=== PATIENT | female | born 1990 | race Caucasian/White ===

== ENCOUNTER → 2016-10-26 | Outpatient (CLI) | payer OTHER ==
--- NOTE | 2016-10-26 15:50 | REP ---
Clinical: Anatomical evaluation. Comparison: None . Findings: Examination demonstrates a single live intrauterine in variable presentation. motion is identified by technologist. Placenta is noted left lateral towards the fundus and grade zero without evidence for placenta previa or abruption. Amniotic fluid volume is normal. Cervix measures 3.9 cm in length and appears closed. No evidence for nuchal cord. Gestational age by LMP 19 weeks 5 days with [place] 03/17/2017 . Gestational age by current measurements 18 weeks 4 days with [place] 03/25/2017 . FHR equals 150 beats per minute. BPD 4.3 cm 19 weeks 0 days HC 15.9 cm 18 weeks 5 days AC 13.0 cm 18 weeks 4 days FL 2.8 cm 18 weeks 3 days HL 2.7 cm 18 weeks 4 days HC/AC ratio 1.22 Estimated weight 245 grams ( 46 percentile). Anatomical assessment demonstrates normal structures including cranium, choroid plexus, cavum, cerebellum/posterior fossa, facial features, lungs, four-chamber heart/ventricular outflow tracts, diaphragm, stomach, cord insertion/three-vessel cord, kidneys/bladder, spine, and extremities. Bilateral renal pelviectasis at approximately 3 mm. Impression: Single live intrauterine in variable presentation. Renal pelviectasis within normal range. Anatomical assessment is complete and normal. Signed by Wei Mcgee MD 10/26/2016 03:41 P
== END ==
LOC: M LRY 13:44
PROVIDERS: ATTEND Nurse Practitioner Women's Health
DX: Z36 Encounter for antenatal screening of mother (principal); Z3A.18 18 weeks gestation of pregnancy

== ENCOUNTER → 2017-03-25 | Outpatient (CLI) | payer OTHER ==
--- NOTE | 2017-03-25 14:13 | REP ---
OB ULTRASOUND/BIOPHYSICAL PROFILE: Real-time sonographic evaluation of the gravid uterus performed. There is a single living intrauterine gestation with an estimated gestational age of 40 weeks based on the patient's first ultrasound, [facility] 03/25/2017. heart rate is 153 beats per minute. Amniotic fluid appears within normal limits, FLORINDA of 9.5 is within normal range of 7.1 to 21.4. Biophysical profile score is 8 out of 8. S/D ratio 2.57 within normal range. RI 0.61. position vertex. Placenta anterior with no previa or abruption. IMPRESSION: Biophysical profile score 8 out of 8. Signed by David Ghotra MD 03/25/2017 05:05 P
== END ==
LOC: M SMT 12:58
PROVIDERS: ATTEND Nurse Practitioner Women's Health
DX: O48.0 Post-term pregnancy (principal); Z3A.40 40 weeks gestation of pregnancy